=== PATIENT | male | born 1950 | race Two or more races ===

== ENCOUNTER 2019-02-27 13:14 | Outpatient (CLI) | payer MEDICARE ==
[~2019-02-27] VITALS: Ht 172.7 cm; Wt 91.6 kg
[2019-02-27] MEDS ORDERED: DIOVAN HCT 1601 EACH ORAL (16:04)
[2019-02-27] MEDS ORDERED: DOXAZOSIN MESYLA1 MG ORAL (16:04)
[2019-02-27] MEDS ORDERED: SIMVASTATIN80 MG ORAL (16:04)
[2019-02-27] MEDS ORDERED: METFORMIN HCL500 M1 ORAL (16:04)
[2019-02-27] MEDS ORDERED: MELOXICAM15 MG PO (16:04)
[2019-02-27] MEDS ORDERED: ASPIRIN EC81 MG ORAL (16:04)
[2019-02-27] MEDS ORDERED: GABAPENTIN300 MG ORAL (16:04)
[2019-02-27] MEDS ORDERED: PROSCAR5 MG ORAL (16:04)
[2019-02-27] MEDS ORDERED: VITAMIN D250000 UNI1 ORAL (16:04)
[2019-02-27] MEDS ORDERED: AMLODIPINE BESYL5 MG ORAL (16:04)
[2019-02-27] MEDS ORDERED: CIALIS5 MG PO (16:04)
[2019-02-27 16:07] VITALS: BP 130/71
--- NOTE | 2019-02-27 20:45 | Consultation ---
DATE OF CONSULTATION: 02/27/2019 CONSULTING PHYSICIAN: Hernando Zhao M.D. REASON FOR CONSULTATION: Evaluation for anemia, chronic GERD, screening colonoscopy. PAST MEDICAL HISTORY: BPH, diabetes, hypertension, hypercholesterolemia. PAST SURGICAL HISTORY: Bilateral hernia repair. MEDICATIONS: Please see medication reconciliation list. FAMILY HISTORY: No significant family history of malignancy. SOCIAL HISTORY: The patient drinks socially. Denies any tobacco or IV drug abuse. ALLERGIES: No known drug allergies. PHYSICAL EXAMINATION: VITAL SIGNS: Temperature 98.1, blood pressure 130/71, pulse is 93, respirations 20. HEENT: Normocephalic and atraumatic. Sclerae anicteric. NECK: Supple. No evidence of obvious lymphadenopathy. CARDIOVASCULAR: Regular rhythm. Plus S1 and S2. No obvious murmur. LUNGS: Clear to auscultation bilaterally. ABDOMEN: Positive bowel sounds. Soft, nontender. No rebound. No guarding. No peritoneal sign. EXTREMITIES: No cyanosis, no clubbing, no edema. ASSESSMENT AND PLAN: This is a 69-year-old male with normocytic anemia, chronic GERD, and need for screening colonoscopy. Plan to do endoscopy and colonoscopy next week. Hernando Zhao M.D. DR: Berta JOB#: [id number] CC:
== END 2019-02-27 15:14 | disposition home or self-care (01) ==
LOC: PAN 13:14
DX: K21.9 Gastro-esophageal reflux disease without esophagitis (principal); D64.9 Anemia, unspecified; E11.9 Type 2 diabetes mellitus without complications; I10 Essential (primary) hypertension; E78.00 Pure hypercholesterolemia, unspecified
CPT/HCPCS: 99202

== ENCOUNTER 2019-03-27 13:56 | Outpatient (CLI) | payer MEDICARE, BC ==
[~2019-03-27 13:56] MED LIST: AMLODIPINE BESYL5 MG ORAL; ASPIRIN EC81 MG ORAL; CIALIS5 MG PO; DIOVAN HCT 1601 EACH ORAL; DOXAZOSIN MESYLA1 MG ORAL; GABAPENTIN300 MG ORAL; MELOXICAM15 MG PO; METFORMIN HCL500 M1 ORAL; PROSCAR5 MG ORAL; SIMVASTATIN80 MG ORAL; VITAMIN D250000 UNI1 ORAL
[2019-03-27 14:00] VITALS: BP 125/79
--- NOTE | 2019-03-27 14:16 | General Progress Note ---
Assessment/Plan Problem List: (1) HP positive gastritis Assessment/Plan: treat with Quatro therapy RTC 3 months Subjective ROS Limited/Unobtainable: Yes Allergies: Coded Allergies: No Known Allergies (Unverified , 02/27/19) Objective General Appearance: alert EENT: normal ENT inspection Neck: supple Cardiovascular: normal rate Respiratory/Chest: lungs clear Abdomen: normal bowel sounds, non tender, soft Extremities: non-tender Hernando Zhao MD March 27, 2019 14:16
== END 2019-03-27 15:55 | disposition home or self-care (01) ==
LOC: PAN 13:56
DX: K29.70 Gastritis, unspecified, without bleeding (principal); B96.81 Helicobacter pylori [H. pylori] as the cause of diseases classified elsewhere

== ENCOUNTER 2019-05-01 12:43 | Outpatient (CLI) | payer MEDICARE, BC ==
--- NOTE | 2019-05-01 13:43 | General Progress Note ---
Assessment/Plan Problem List: (1) HP positive gastritis (2) GERD (gastroesophageal reflux disease) ICD Codes: K21.9 - Gastro-esophageal reflux disease without esophagitis SNOMED: 747906350 Assessment/Plan: RTC in 2 months for repeat breath test Subjective ROS Limited/Unobtainable: No Allergies: Coded Allergies: No Known Allergies (Unverified , 02/27/19) Objective General Appearance: alert EENT: normal ENT inspection Neck: supple Cardiovascular: normal rate Respiratory/Chest: lungs clear Abdomen: normal bowel sounds, non tender, soft Extremities: non-tender Hernando Zhao MD May 01, 2019 13:43
== END 2019-05-01 14:43 | disposition home or self-care (01) ==
LOC: PAN 12:43
DX: K29.70 Gastritis, unspecified, without bleeding (principal); K21.9 Gastro-esophageal reflux disease without esophagitis; B96.81 Helicobacter pylori [H. pylori] as the cause of diseases classified elsewhere
CPT/HCPCS: 99212

== ENCOUNTER 2019-06-12 12:51 | Outpatient (CLI) | payer MEDICARE, BC ==
--- NOTE | 2019-06-12 13:33 | GI Progress Note ---
Assessment/Plan Problems: (1) GERD (gastroesophageal reflux disease) ICD Codes: K21.9 - Gastro-esophageal reflux disease without esophagitis SNOMED: 576899911 (2) HP positive gastritis Status: stable Status Narrative Discussed with Dr. Zhao Assessment/Plan Breath test performed today, will follow up Continue PPI Return to clinic x3 months or as needed. The patient was seen and examined at bedside and all new and available data was reviewed in the patients chart. I agree with the above findings, impression and plan. (Patient seen earlier today. Signature stamp does not reflect patient encounter time.). - Hernando Zhao MD Subjective Gastrointestinal/Abdominal: Reports: no symptoms Objective Temperature 98.4 Blood pressure 130/79 Pulse 79 95% room air General Appearance: WD/WN, no apparent distress, alert Cardiovascular: normal rate Respiratory/Chest: normal breath sounds, no respiratory distress Abdominal Exam: normal bowel sounds, non tender, soft Extremities: normal range of motion, non-tender Curt Ruiz NP Jun 12, 2019 13:33
[2019-06-12 13:42] VITALS: BP 138/79
== END 2019-06-12 14:51 | disposition home or self-care (01) ==
LOC: PAN 12:51
DX: K21.9 Gastro-esophageal reflux disease without esophagitis (principal); K29.70 Gastritis, unspecified, without bleeding; B96.81 Helicobacter pylori [H. pylori] as the cause of diseases classified elsewhere
CPT/HCPCS: 83013